=== PATIENT | female | born 1935 | race Caucasian/White ===

== ENCOUNTER → 2023-10-05 13:31 | Outpatient (REF) | payer OTHER, SELFPAY | LOC: RAD 13:31 | PROVIDERS: ATTENDING PHYSICIAN Internal Medicine | DX: I73.9 Peripheral vascular disease, unspecified (principal) | CPT/HCPCS: 93925 ==

== ENCOUNTER 2024-07-04 08:12 | Inpatient (IN) | payer OTHER, SELFPAY ==
[2024-06-30] VITALS (7 sets, daily range): BP systolic 143–175; BP diastolic 73–92; BMI 21.4; BMI 21.7
[2024-06-30 18:33] LABS: % Basophils 0.2 % (0-2); % Immature Granulocytes 0.4 % (0-0.5); % Lymphocytes 8.9 % (20.5-51.1); % Monocytes 6.3 % (1.7-9.3); % Neutrophils 84.2 % (42.2-75.2); Absolute Lymphocytes 0.4 10^3/uL (1.2-3.4); Absolute Monocytes 0.3 10^3/uL (0.1-0.6); Absolute Neutrophils 3.9 10^3/uL (1.4-6.5); Hemoglobin 14.4 g/dL (12.0-16.0); Mean Corp Hgb Conc. 34.3 g/dL (33.0-37.0); Mean Corpuscular Hgb 32.1 pg (27.0-31.0); Mean Corpuscular Volume 93.5 fL (81.0-99.0); Mean Platelet Volume 9.4 fL (7.4-10.4); Nucleated Red Blood Cells % 0 %; Platelet Count 152 10^3/uL (130-400); Red Blood Cell Count 4.49 10^6/uL (4.20-5.40); Red Cell Dist. Width 13.2 % (11.5-14.5); White Blood Cell Count 4.6 10^3/uL (4.8-10.8)
[2024-06-30] MEDS: TYLENOL 1000 MG PO (18:33)
[2024-06-30] MEDS: NSS 1000 IV ×2 (18:36→22:56)
[2024-06-30 18:49] LABS: ALT (SGPT) 22 U/L (0-35); AST (SGOT) 35 U/L (14-36); Albumin 4.8 g/dl (3.5-5.0); Alkaline Phosphatase 79 U/L (38-126); Blood Urea Nitrogen 14 mg/dl (7-17); Calcium 9.1 mg/dl (8.4-10.2); Carbon Dioxide 26 mmol/L (22-30); Chloride 96 mmol/L (98-107); Estimated Creatinine Clearance 47 ml/min; Glucose 124 mg/dl (70-99); Lactic Acid 1.6 mmol/L (0.7-2.0); Potassium 4.1 mmol/L (3.5-5.1); Sodium 132 mmol/L (135-145); Total Bilirubin 0.7 mg/dl (0.2-1.3); Total Protein 7.8 g/dl (6.3-8.2); eGFR > 60.00
[2024-06-30 18:51] LABS: COVID-19 Antigen Negative (Negative)
--- NOTE | 2024-06-30 20:53 | ED.GENMED ---
History of Present Illness
General
Chief Complaint: Weakness
Source: patient and family
Exam Limitations: none
Time Seen by Provider: 06/30/24 18:06
Nursing documentation reviewed up to this point in time: agreed with
History of Present Illness
History of Present Illness:
Patient to ED with complaint of SOB, fatigue. She states symptoms started today. She reports difficulty caring for self today due to her symptoms. Her niece brought her OTC medications today but became concerned and called 911 for transport. She
denies fever/chlls at home however temp 102 on arrival to ED. PUlse ox 91% RA at rest. +course cough. Denies any CP/pressure, n/v/d. No abd. pain.
Past History
Past History
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
Social History
Tobacco: Non-smoker
Alcohol: None
Personal:
Living: with family
Review of Systems
Review of Systems
All Other Systems: ROS reviewed and negative except as documented in HPI and ROS
Constitutional: Reports fever and fatigue
EENT: Reports no symptoms
Respiratory: Reports cough and trouble breathing
Cardiac: Reports no symptoms
ABD/GI: Reports no symptoms
: Reports no symptoms
Musculoskeletal: Reports no symptoms
Skin: Reports no symptoms
Neurological: Reports weakness
Psychiatric: Reports no symptoms
Phy Exam
General Physical Exam
General Presentation: mild distress
General age: appears stated age
General Skin: warm and dry
General Habitus: normal
General Mental: alert
Cardiovascular Exam
Cardiovascular Exam: regular rate/rhythm and no edema
Pulmonary Exam
Pulmonary Exam: chest non tender and no wheezing
Cough: coarse cough
Breath Sounds: Rhonchi: left upper and right upper
Gastrointestinal Exam
Gastrointestinal Exam: non tender, soft and no organomegaly
Musculoskeletal Exam
Musculoskeletal Exam: full ROM and neuro vasc intact
Skin Exam
Skin Exam: normal color, warm/dry and no rash
Psychiatric Exam
Psychiatric Exam: normal mood/affect
Course
Orders/Labs/Results
Orders:
Orders
06/30/24 Dinner
Regular
At Your Request: Non-Participating
Does patient need a safe tray?: No
06/30/24 18:07
Urinalysis Reflex To Culture Urgent
CR Chest - 2 Views Urgent
Comment:
Reason For Exam: fever, weakness
06/30/24 18:08
Acetaminophen [Tylenol] 1,000 mg PO NOW STA
06/30/24 18:26
COVID-19 Antigen Urgent
Source: Nasal Swab
Complete Blood Count/With Diff Urgent
Comprehensive Metabolic Panel Urgent
Lactic Acid Urgent
Blood Culture Urgent
ERNA Source: Blood/Venous
Specimen Description:
Influenza A+B Rapid Molecular Urgent
ERNA Source: Nasal Swab
Specimen Description:
06/30/24 18:30
CT Head W/o Iv Contrast Urgent
Comment:
Reason For Exam: change in mental status
06/30/24 18:33
0.9% Sodium Chloride 1000 ml [Nss] 1,000 ml IV BOLUS
06/30/24 20:49
Oseltamivir Phosphate [Tamiflu] 75 mg PO NOW STA
06/30/24 20:50
Azithromycin 500 mg/250 ml [Zithromax Infusion] 500 mg in 250 ml IV NOW
CefTRIAXone [Rocephin] 1,000 mg IV NOW STA
06/30/24 21:18
Admit/Transfer Patient As Directed
Co-Sign Provider:
Level of Care: Observation services
Assign to:: Medical/Surgical
Physician / Group: omari
Diagnosis: influenza
Code Status As Directed
Resuscitation Status: Full Code
PRN Pain Medication Management As Directed
May give lesser potent ordered pain med per pt: Yes
preference::
Protocol:: Medication orders for pain may be administered in a
manner that supports deferring to patient preference
when the pt is:
- Requesting an ordered lesser potent pain medication.
Least to most potent pain medications are defined
as: acetaminophen < NSAID < tramadol < opioids
(morphine, oxycodone, hydromorphone).
- Requesting a lesser dose of the same medication IF
ORDERED.
- Requesting a less intrusive route of administration
if both routes are prescribed by the provider (PO <
IV).
06/30/24 22:19
0.9% Sodium Chloride 1000 ml [Nss] 1,000 ml IV 70 mls/hr
Acetaminophen [Tylenol] 650 mg PO Q4HPRN PRN
Ibuprofen [Motrin] 400 mg PO Q6HPRN PRN
Ondansetron Injectable [Zofran] 4 mg IV Q6HPRN PRN
06/30/24 22:19
Activity As Directed
Activity Level: As Tolerated
Vital Signs As Directed
Frequency: Per unit guidelines
DX Deep Vein Thrombosis Video Routine
07/01/24 06:00
Complete Blood Count/With Diff IN AM
Comprehensive Metabolic Panel IN AM
07/01/24 08:00
Heparin 5,000 units SC Q12
Abnormal Lab Results
06/30/24
18:26
WBC 4.6 L 10^3/uL
(4.8-10.8)
MCH 32.1 H pg
(27.0-31.0)
Absolute Lymphs (auto) 0.4 L 10^3/uL
(1.2-3.4)
Neutrophils % 84.2 H %
(42.2-75.2)
Lymphocytes % 8.9 L %
(20.5-51.1)
Sodium 132 L mmol/L
(135-145)
Chloride 96 L mmol/L
(98-107)
Glucose 124 H mg/dl
(70-99)
06/30/24 18:26
06/30/24 18:26
Vital Signs
Initial and Last Documented VS:
Initial Vital Signs
BP
175/84
06/30/24 18:08
Last Documented Vital Signs
Temp Pulse Resp BP Pulse Ox
99.0 F 80 19 143/73 93
06/30/24 23:08 06/30/24 23:08 06/30/24 23:08 06/30/24 23:08 06/30/24 23:22
*Radiology
Radiology exam reviewed: radiology read reviewed
*Pulse Oximetry
Patient hypoxic: yes
Comment: Pulse ox 90-91% RA, 94% 2LNC
*Critical Care Note
Total Time (30-74mins, 75-104mins- exclusive of procedures): Not Applicable
Update Note
Update Note:
Patient brought to ED for report of weakness, fatigue, cough. Symptoms started today. Temp 102 on arrival, pulse ox 90-91% RA. Course cough. She lives alone, states she has been able to care for self until this AM. Niece called for transport to
ED. Given IVF, tylenol on arrival. O2 at 2LNC applied. Pulse ox holding at 94-95%. CXR with bilateral pneumonia. She is also influenza A pos. Case discussed with Dr. Tilley who recommends initiation of IV antibiotics for pneumonia. Will admit
to hospitalists service. Tamiflu initiated.
ED Attending Note
-
Portions of this chart may have been created with voice recognition software.� Occasional wrong word or��sound alike� substitutions may have occurred due to the inherent limitations of voice recognition software.
Discharge Plan
Departure
Patient Disposition: Admit
Date of Disposition: 06/30/24
Time of Disposition: 20:59
Presentation/result/management discussed w/ accepting MD/DO: Hospitalist
Condition: Fair
Covid-19: Not Applicable
Discharge Problem:
Influenza A, Pneumonia
Interventions
Interventions:
*Risk Screen - Suicide Last Done: 06/30/24 22:32
*General Assessment Last Done: 06/30/24 18:13
*Neglect/Abuse Screening Last Done: 06/30/24 18:13
ED- Fall Risk Assessment Last Done: 06/30/24 18:22
*ED COVID-19 Vaccine History Last Done: 06/30/24 18:13
*Nursing Disposition Last Done: 06/30/24 22:19
ED- Cardiac Assessment Last Done: 06/30/24 18:22
ED- Neurological Assessment Last Done: 06/30/24 18:22
ED- Pulmonary Assessment Last Done: 06/30/24 18:22
Discharge Date and Time
Discharge Date/Time: 06/30/24 22:20
--- NOTE | 2024-06-30 21:20 | HPS.HSE ---
Addendum entered and electronically signed by Cinthya Castanon MD 06/30/24 21:22:
Correction- Symptoms started 2 days ago.
Original Note:
Family Physician
-
Family Physician: Tessie Malloy
Chief Complaint
-
cough, weakness
History of Present Illness
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 Denied fever chills but had
temperature of 102. Pulse ox was 91%. Denies chest pain or nausea vomiting or diarrhea. Denies abdominal pain. Denies chest pain. Denies sick contacts.
Denies smoking or alcohol use.
Medical History
Past Medical History
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
Past Surgical History: Reports None
Social History
Tobacco: Non-smoker
Alcohol: None
Drug: None
Family History
Family History: Not pertinent
Allergies / Home Medications
Allergies reflects when Allergies were last updated in [facility].
Home Medications with original date entered in [facility]
Allergy/Medication List:
Allergies
Allergy/AdvReac Type Severity Reaction Status Date / Time
Iodinated Contrast Media Allergy Rash Verified 12/10/21 15:25
[Iodinated Contrast Media -
IV Dye]
Home Medications
pyridostigmine bromide 60 mg tablet 120 mg PO BID 01/20/14
Flaxseed Powder 1 dose PO DAILY 09/11/19
acetaminophen 500 mg tablet (Tylenol Extra Strength) 1,000 mg PO Q6HPRN PRN mild pain 09/11/19
evening primrose oil 500 mg capsule 500 mg PO DAILY 09/11/19
polyvinyl alcohol-povidone (PF) 1.4 %-0.6 % eye drops in a dropperette (Refresh Classic (PF)) 1 drops BOTH EYES DAILY 09/11/19
Saccharomyces boulardii 250 mg capsule (Florastor) 250 mg PO BID #60 caps 09/14/19
amoxicillin 875 mg-potassium clavulanate 125 mg tablet 1 tab PO Q12 #10 tabs 09/14/19
hydrocodone 5 mg-acetaminophen 325 mg tablet 1 tab PO Q4HPRN PRN severe pain #10 tabs 12/10/21
Review of Systems
-
History Source: Patient
A 12 point ROS was completed and negative except as noted: Yes
Constitutional: Reports No Symptoms
EENT: Reports See HPI
Respiratory: Reports See HPI
Cardiac: Reports No Symptoms
Abdomen/GI: Reports No Symptoms
: Reports No Symptoms
Musculoskeletal: Reports No Symptoms
Skin: Reports No Symptoms
Neurological: Reports No Symptoms
Endocrine: Reports No Symptoms
Hematologic/Lymphatic: Reports No Symptoms
Psych: Reports No Symptoms
Physical Exam
Vital Signs
Vital Signs
Temp Pulse Resp BP Pulse Ox
99.8 F 81 19 162/92 92
06/30/24 20:46 06/30/24 20:45 06/30/24 20:45 06/30/24 20:00 06/30/24 20:45
Physical Exam
General: Well Developed, Well Nourished and No Apparent Distress
HEENT: NormoCephalic, Moist mucous membranes and Atraumatic
Respiratory: Clear
Cardiac: S1/S2 and Regular Rhythm; No Murmur or Rub
GI: Soft, Non Tender, Non Distended and Normal Bowel Sounds; No Organomegaly
Rectal: Deferred by Provider
Musculoskeletal: No Clubbing, No Cyanosis and No Edema
Skin: No Rash
Neuro: Nonfocal/grossly intact
Laboratory Results
-
06/30/24 18:26
06/30/24 18:26
Laboratory Results
Lactic Acid 1.6 mmol/L (0.7-2.0) 06/30/24 18:26
Total Bilirubin 0.7 mg/dl (0.2-1.3) 06/30/24 18:26
AST 35 U/L (14-36) 06/30/24 18:26
ALT 22 U/L (0-35) 06/30/24 18:26
Alkaline Phosphatase 79 U/L (38-126) 06/30/24 18:26
Data Reviewed
-
Lab Data: Labs Reviewed by me
Old Records: Reviewed
Impression/Plan
-
IMPRESSION:
PLAN:
# Influenza A infection
-Chest x-ray shows patchy opacities of the right mid and upper lung
-CT head negative
-Blood cultures pending
-IV fluids
-Tamiflu started
-Ceftriaxone/azithromycin given hold further antibiotics
-Tylenol
History of occult myasthenia gravis
-Continue pyridostigmine
Colorectal cancer status post bowel resection with colostomy
Full code
DVT prophylaxis�heparin
Regular diet
[2024-06-30] MEDS: ROCEPHIN 1000 MG IV (21:48)
[2024-06-30] MEDS: TAMIFLU 75 MG PO (21:48)
[2024-06-30] MEDS: ZITHROMAX INFUSION 250 IV (21:48)
[2024-06-30] MEDS: TYLENOL 650 MG PO (23:03)
[2024-07-01 02:07] LABS: Urine Albumin Negative (Neg - Trace); Urine Bilirubin Negative (Negative); Urine Character Clear (Clear); Urine Color Yellow; Urine Glucose Negative (Negative); Urine Ketone 2+ (Negative); Urine Leukocyte Negative (Negative); Urine Nitrite Negative (Negative); Urine Occult Blood Trace (Negative); Urine Specific Gravity 1.015 (<1.030); Urine Urobilinogen Negative (Neg - 1+)
[2024-07-01 02:20] LABS: Urine Squamous Cell 0-2 /LPF (Few)
[2024-07-01 02:21] LABS: Urine Bacteria Few (Negative); Urine White Cell 0-2 /HPF (0-5)
[2024-07-01 07:20] VITALS: BP 155/77
[2024-07-01] MEDS: TAMIFLU 30 MG PO ×2 (08:23→20:33)
[2024-07-01] MEDS: HEPARIN 5000 UNITS SC ×2 (08:23→16:04)
--- NOTE | 2024-07-01 08:35 | W.PN.HOSP.TC ---
Addendum entered and electronically signed by Antonio Hammond MD 07/01/24 14:17:
She does not take Mestinon anymore.
Original Note:
Today's Communication/Plan
-
Tamiflu
Assessment / Plan
Assessment / Plan
Physical exam:
General: Well Developed, Well Nourished and No Apparent Distress
HEENT: Normocephalic, Atraumatic and Moist Mucous Membranes
Respiratory: Clear to Auscultation; Negative Wheezes, Rales or Rhonchi
Cardiac: Regular Rhythm and S1/S2
GI: Soft, Nontender and Nondistended
Musculoskeletal: No Clubbing, No Cyanosis and No Edema
Neuro: Awake, Alert and Oriented, no gross neurological deficits
Psych: Calm
A/P:
Influenza A:
Continue Tamiflu, renally dosed
Add cough medications as needed
Acute hypoxic respiratory insufficiency:
Continue supplemental oxygen and titrate down as able
Abnormal chest x-ray:
Likely viral pneumonia
Stop IV fluids
Given antibiotics in the ED. Hold off on further antibiotics.
Blood culture negative so far (1 set only) but continue to monitor
History of myasthenia gravis:
Restart pyridostigmine today on 07/01
Awaiting for medication reconciliation
DVT prophylaxis:
Heparin SQ
CODE STATUS:
Full code
Anticipated Discharge: 24 - 48 hours
Subjective/Interval History
-
Date of Service: July 01, 2024
Patient still having significant cough, less short of breath. On supplemental oxygen. Afebrile today (Tmax 102.7 yesterday)
Objective Data
-
Labs:
Laboratory Results
07/01/24
07:49
WBC Pending
Hgb Pending
Hct Pending
Plt Count Pending
Sodium Pending
Potassium Pending
Chloride Pending
Carbon Dioxide Pending
BUN Pending
Creatinine Pending
Glucose Pending
Calcium Pending
Total Bilirubin Pending
AST Pending
ALT Pending
Alkaline Phosphatase Pending
Vital Signs:
Vital Signs
Temp Pulse Resp BP Pulse Ox
99.8 F 73 17 155/77 95
07/01/24 07:20 07/01/24 07:20 07/01/24 07:20 07/01/24 07:20 07/01/24 07:20
I&O
06/30/24 07/01/24 07/02/24
06:59 06:59 06:59
Intake Total 1320 / 1320
Balance 1320 / 1320
--- NOTE | 2024-07-01 10:02 | CM ---
Addendum entered by Eleonora Navarro RN 07/01/24 10:08:
Patient currently on O2 @ 3L/min via nc.
Original Note:
Reviewed the chart notes and spoke with the patient at the bedside. Patient admitted under observational status. The J[facility] letter was provided and reviewed. The patient had no questions with regards to the letter.
Patient is admitted for influenza. The patient resides alone in a one story home with two steps to enter via front door or one step to enter via garage. The patient reports no DME/VN/SNF in the past. The patient confirmed [facility] and PCP is Dr. Gabriella Malloy. CM continues to be available to patient/family and is monitoring medical plan for needs at discharge.
Plan: Discharge plans will depend on the patient's progress.
[2024-07-01 10:10] LABS: % Basophils 0.1 % (0-2); % Immature Granulocytes 0.6 % (0-0.5); % Lymphocytes 10.3 % (20.5-51.1); % Monocytes 4.6 % (1.7-9.3); % Neutrophils 84.4 % (42.2-75.2); Absolute Lymphocytes 0.7 10^3/uL (1.2-3.4); Absolute Monocytes 0.3 10^3/uL (0.1-0.6); Absolute Neutrophils 5.9 10^3/uL (1.4-6.5); Hematocrit 36.6 % (37.0-47.0); Hemoglobin 12.5 g/dL (12.0-16.0); Mean Corp Hgb Conc. 34.2 g/dL (33.0-37.0); Mean Corpuscular Volume 93.6 fL (81.0-99.0); Mean Platelet Volume 9.9 fL (7.4-10.4); Nucleated Red Blood Cells % 0 %; Platelet Count 136 10^3/uL (130-400); Red Blood Cell Count 3.91 10^6/uL (4.20-5.40); Red Cell Dist. Width 13.3 % (11.5-14.5)
[2024-07-01 10:46] LABS: ALT (SGPT) 18 U/L (0-35); AST (SGOT) 30 U/L (14-36); Albumin 3.4 g/dl (3.5-5.0); Alkaline Phosphatase 52 U/L (38-126); Blood Urea Nitrogen 9 mg/dl (7-17); Calcium 8.1 mg/dl (8.4-10.2); Carbon Dioxide 20 mmol/L (22-30); Chloride 100 mmol/L (98-107); Estimated Creatinine Clearance 55 ml/min; Glucose 90 mg/dl (70-99); Potassium 3.7 mmol/L (3.5-5.1); Sodium 132 mmol/L (135-145); Total Bilirubin 0.7 mg/dl (0.2-1.3); Total Protein 6.1 g/dl (6.3-8.2); eGFR > 60.00
[2024-07-01] MEDS: ZOFRAN 4 MG IV (11:02)
[2024-07-01] MEDS: NSS 1000 IV (12:37)
[2024-07-01 15:04] VITALS: PULSE 75; O2SAT 98
[2024-07-01 15:25] VITALS: BP 148/73
[2024-07-01 23:13] VITALS: BP 138/68
[2024-07-02] MEDS: HEPARIN 5000 UNITS SC ×4 (00:30→23:07)
[2024-07-02 08:03] VITALS: BP 150/83
[2024-07-02] MEDS: TAMIFLU 30 MG PO ×2 (08:18→20:27)
[2024-07-02 08:43] LABS: Hematocrit 34.5 % (37.0-47.0); Hemoglobin 11.6 g/dL (12.0-16.0); Mean Corp Hgb Conc. 33.6 g/dL (33.0-37.0); Mean Corpuscular Hgb 31.7 pg (27.0-31.0); Mean Corpuscular Volume 94.3 fL (81.0-99.0); Mean Platelet Volume 9.6 fL (7.4-10.4); Platelet Count 131 10^3/uL (130-400); Red Blood Cell Count 3.66 10^6/uL (4.20-5.40); Red Cell Dist. Width 13.2 % (11.5-14.5); White Blood Cell Count 4.1 10^3/uL (4.8-10.8)
--- NOTE | 2024-07-02 08:55 | W.PN.HOSP.TC ---
Addendum entered and electronically signed by Antonio Hammond MD 07/02/24 17:46:
updated sister over the phone today
Original Note:
Today's Communication/Plan
-
Oxygen. Tamiflu
Assessment / Plan
Assessment / Plan
Physical exam:
General: Well Developed, Well Nourished and No Apparent Distress
HEENT: Normocephalic, Atraumatic and Moist Mucous Membranes
Respiratory: Clear to Auscultation; Negative Wheezes, Rales or Rhonchi
Cardiac: Regular Rhythm and S1/S2
GI: Soft, Nontender and Nondistended
Musculoskeletal: No Clubbing, No Cyanosis and No Edema
Neuro: Awake, Alert and Oriented, no gross neurological deficits
Psych: Calm
A/P:
Influenza A:
Continue Tamiflu, renally dosed
Cont cough medications as needed
Acute hypoxic respiratory insufficiency:
Incentive spirometry
Continue supplemental oxygen and titrate down as able
Abnormal chest x-ray:
Likely viral pneumonia
Off IV fluids
Given antibiotics in the ED. Hold off on further antibiotics.
Blood culture negative so far
Hyponatremia:
Improving
Leukopenia:
Likely viral
Anemia:
No signs of active bleeding
Probably dilutional
No myasthenia gravis per patient report.
DVT prophylaxis:
Heparin SQ
CODE STATUS:
Full code
Anticipated Discharge: 24 - 48 hours
Subjective/Interval History
-
Date of Service: July 02, 2024
Patient feels better overall. Less cough and less shortness of breath. Afebrile. Still on supplemental oxygen
Objective Data
-
Labs:
Laboratory Results
07/02/24
08:10
WBC 4.1 L
Hgb 11.6 L
Hct 34.5 L
Plt Count 131
Sodium Pending
Potassium Pending
Chloride Pending
Carbon Dioxide Pending
BUN Pending
Creatinine Pending
Glucose Pending
Calcium Pending
Vital Signs:
Vital Signs
Temp Pulse Resp BP Pulse Ox
98.2 F 67 16 150/83 93
07/02/24 08:03 07/02/24 08:03 07/02/24 08:03 07/02/24 08:03 07/02/24 08:03
I&O
07/01/24 07/02/24 07/03/24
06:59 06:59 06:59
Intake Total 1320 / 1320 2360 / 2360
Balance 1320 / 1320 2360 / 2360
[2024-07-02 09:06] LABS: Blood Urea Nitrogen 9 mg/dl (7-17); Calcium 8.1 mg/dl (8.4-10.2); Carbon Dioxide 26 mmol/L (22-30); Chloride 104 mmol/L (98-107); Estimated Creatinine Clearance 47 ml/min; Glucose 87 mg/dl (70-99); Potassium 3.7 mmol/L (3.5-5.1); Sodium 135 mmol/L (135-145); eGFR > 60.00
[2024-07-02 09:30] LABS: % Basophils 0.5 % (0-2); % Eosinophils 0.2 % (0-6); % Immature Granulocytes 0.2 % (0-0.5); % Monocytes 6.8 % (1.7-9.3); % Neutrophils 70.3 % (42.2-75.2); Absolute Lymphocytes 0.9 10^3/uL (1.2-3.4); Absolute Monocytes 0.3 10^3/uL (0.1-0.6); Absolute Neutrophils 2.9 10^3/uL (1.4-6.5); Nucleated Red Blood Cells % 0 %
--- NOTE | 2024-07-02 12:53 | CM ---
Chart reviewed.
Pt currently on 2L O2.
PT recommending home PT at d/c. Discussed w/ pt, pt agreeable to [facility] referral completed in [facility], liaison made aware
[facility]

Plan: Home w/ [facility]
--- NOTE | 2024-07-02 13:05 | VNURNOTE ---
Home Health Liaison spoke with patient to discuss [facility] nurse/therapy, visits, schedule and homebound status. Patient is agreeable and understands that visits at home will be 2-3 x per week to assess and teach medical management. Patient is aware
that [facility] will contact them for start of care in 1-2 days after discharge from . [facility] referral completed in [facility].
[2024-07-02 15:55] VITALS: BP 140/70
[2024-07-02] MEDS: ROBITUSSIN 100 MG PO (22:52)
[2024-07-02 23:25] VITALS: BP 130/70
[2024-07-03 07:25] VITALS: BP 143/76
[2024-07-03 07:56] LABS: % Eosinophils 1.3 % (0-6); % Immature Granulocytes 0.3 % (0-0.5); % Lymphocytes 27.4 % (20.5-51.1); Absolute Lymphocytes 0.9 10^3/uL (1.2-3.4); Absolute Monocytes 0.4 10^3/uL (0.1-0.6); Absolute Neutrophils 1.9 10^3/uL (1.4-6.5); Hematocrit 33.6 % (37.0-47.0); Hemoglobin 11.4 g/dL (12.0-16.0); Mean Corp Hgb Conc. 33.9 g/dL (33.0-37.0); Mean Corpuscular Hgb 31.7 pg (27.0-31.0); Mean Corpuscular Volume 93.3 fL (81.0-99.0); Mean Platelet Volume 9.8 fL (7.4-10.4); Nucleated Red Blood Cells % 0 %; Platelet Count 130 10^3/uL (130-400); Red Cell Dist. Width 13.2 % (11.5-14.5); White Blood Cell Count 3.2 10^3/uL (4.8-10.8)
[2024-07-03] MEDS: TAMIFLU 30 MG PO ×2 (08:17→19:50)
[2024-07-03] MEDS: HEPARIN 5000 UNITS SC ×3 (08:17→22:59)
[2024-07-03 08:25] LABS: Blood Urea Nitrogen 12 mg/dl (7-17); Calcium 8.2 mg/dl (8.4-10.2); Carbon Dioxide 28 mmol/L (22-30); Chloride 103 mmol/L (98-107); Estimated Creatinine Clearance 55 ml/min; Glucose 90 mg/dl (70-99); Sodium 135 mmol/L (135-145); eGFR > 60.00
[2024-07-03 08:31] LABS: Potassium 3.7 mmol/L (3.5-5.1)
--- NOTE | 2024-07-03 09:49 | W.PN.HOSP.TC ---
Today's Communication/Plan
-
Tamiflu. Oxygen
Assessment / Plan
Assessment / Plan
Physical exam:
General: Well Developed, Well Nourished and No Apparent Distress
HEENT: Normocephalic, Atraumatic and Moist Mucous Membranes
Respiratory: Clear to Auscultation; Negative Wheezes, Rales or Rhonchi
Cardiac: Regular Rhythm and S1/S2
GI: Soft, Nontender and Nondistended
Musculoskeletal: No Clubbing, No Cyanosis and No Edema
Neuro: Awake, Alert and Oriented, no gross neurological deficits
Psych: Calm
A/P:
Influenza A:
Continue Tamiflu, renally dosed
Cont cough medications as needed
Updated sister yesterday
Acute hypoxic respiratory insufficiency:
Incentive spirometry
Continue supplemental oxygen and titrate down as able
Abnormal chest x-ray:
Likely viral pneumonia
Off IV fluids
Given antibiotics in the ED. Hold off on further antibiotics.
Blood culture negative so far
Hyponatremia:
Improving
Leukopenia:
Likely viral
Anemia:
No signs of active bleeding
Probably dilutional
No myasthenia gravis per patient report.
DVT prophylaxis:
Heparin SQ
CODE STATUS:
Full code
Anticipated Discharge: 24 - 48 hours
Subjective/Interval History
-
Date of Service: July 03, 2024
Patient feels better overall. Still on supplemental oxygen
Objective Data
-
Labs:
Laboratory Results
07/03/24
07:26
WBC 3.2 L
Hgb 11.4 L
Hct 33.6 L
Plt Count 130
Sodium 135
Potassium 3.7
Chloride 103
Carbon Dioxide 28
BUN 12
Creatinine 0.6
Glucose 90
Calcium 8.2 L
Vital Signs:
Vital Signs
Temp Pulse Resp BP Pulse Ox
98.0 F 67 16 143/76 91
07/03/24 07:25 07/03/24 07:25 07/03/24 07:25 07/03/24 07:25 07/03/24 07:25
I&O
07/02/24 07/03/24 07/04/24
06:59 06:59 06:59
Intake Total 2360 / 2360 600 / 600
Balance 2360 / 2360 600 / 600
[2024-07-03 15:55] VITALS: BP 152/77
[2024-07-03 16:25] VITALS: BP 152/77
[2024-07-03 23:14] VITALS: BP 147/75
[2024-07-03] MEDS: TESSALON PERLES 100 MG PO (23:22)
--- NOTE | 2024-07-04 07:20 | W.PN.HOSP.TC ---
Today's Communication/Plan
-
Discharge planning
Assessment / Plan
Assessment / Plan
Physical exam:
General: Well Developed, Well Nourished and No Apparent Distress
HEENT: Normocephalic, Atraumatic and Moist Mucous Membranes
Respiratory: Clear to Auscultation; Negative Wheezes, Rales or Rhonchi
Cardiac: Regular Rhythm and S1/S2
GI: Soft, Nontender and Nondistended
Musculoskeletal: No Clubbing, No Cyanosis and No Edema
Neuro: Awake, Alert and Oriented, no gross neurological deficits
Psych: Calm
A/P:
Influenza A:
Continue Tamiflu, renally dosed
Cont cough medications as needed
Updated sister prior
Acute hypoxic respiratory insufficiency:
Improved
Incentive spirometry
Continue supplemental oxygen and titrate down as able
Abnormal chest x-ray:
Likely viral pneumonia
Off IV fluids
Given antibiotics in the ED. Hold off on further antibiotics.
Blood culture negative so far
Hyponatremia:
Improving
Leukopenia:
Likely viral
Anemia:
No signs of active bleeding
Probably dilutional
No myasthenia gravis per patient report.
DVT prophylaxis:
Lovenox SQ
CODE STATUS:
Full code
Anticipated Discharge: Today
Subjective/Interval History
-
Date of Service: July 04, 2024
Patient doing well. Afebrile. Off oxygen
Objective Data
-
Vital Signs:
Vital Signs
Temp Pulse Resp BP Pulse Ox
98.5 F 63 18 147/75 95
07/03/24 23:14 07/03/24 23:14 07/03/24 23:14 07/03/24 23:14 07/03/24 23:14
I&O
07/03/24 07/04/24 07/05/24
06:59 06:59 06:59
Intake Total 600 / 600 1620 / 1620
Output Total 400 / 400
Balance 600 / 600 1220 / 1220
[2024-07-04 07:52] VITALS: BP 152/68
[2024-07-04] MEDS: TAMIFLU 30 MG PO (08:50)
--- NOTE | 2024-07-04 11:10 | CM ---
Reviewed the chart notes and spoke with the patient at the bedside. IMM reviewed. CM continues to be available to patient/family and is monitoring medical plan for needs at discharge.
Plan: Discharge to home with VN services. VN has spoken with the patient at the bedside.
[2024-07-04 11:24] VITALS: BP 149/82; PULSE 64; O2SAT 97
--- NOTE | 2024-07-04 13:11 | W.DCSUMMARY ---
Discharge Summary
Discharge Data
Date of Admission: 07/04/24
Date of Discharge: 07/04/24
-
Pending Results: No
Hospital Course
Patient 89 years old female came into the hospital with cough and shortness of breath and hypoxia. She was found to have influenza A. She was treated with Tamiflu. She was kept on oxygen and was able to be titrated off. Blood culture has
remained negative. Patient did well rest of hospital stay and she was able to come off oxygen. She participated with PT and OT. She is hemodynamically stable and afebrile. She is oxygenating well on room air. She will be discharged in stable
condition today.
Discharge duration: 35 minutes
Discharge Plan
-
Patient Disposition: Home with Home Care
Discharge Diagnosis/Procedures: Influenza A. Viral pneumonia. Hyponatremia. Acute hypoxic respiratory insufficiency. Hyponatremia.
Diet: Low Cholesterol
Activity: As tolerated
Blood Work: Please PCP to order CBC, BMP within 1 week
Referrals:
Tessie Malloy MD [Family Provider] - in less than 1 week
Prescriptions:
New
oseltamivir 30 mg Capsule
30 mg PO BID 3 Days Qty: 6 0RF
Continued
Flaxseed Powder
1 dose PO DAILY
PreserVision AREDS 2,148 mcg-113 mg-45 mg-17.4mg Tablet
1 tab PO DAILY
krill oil 500 mg Capsule
500 mg PO DAILY
Discharge Orders:
Discharge Patient (As Directed); Ordered 07/04/24
Ordered By: Antonio Hammond
Discharge Date and Time
Discharge Date/Time: 07/04/24 18:16
Print Language: CHINESE
[2024-07-04 13:57] VITALS: BP 164/74
[2024-07-04 16:06] VITALS: BP 143/68
== END 2024-07-04 18:16 | disposition home health service (06) | DRG 194 ==
LOC: 2 NORTH 08:12
PROVIDERS: Nurse Practitioner; ADMITTING PHYSICIAN Hospitalist; ATTENDING PHYSICIAN Hospitalist; EMERGENCY PHYSICIAN Emergency Medicine; FAMILY PHYSICIAN Internal Medicine
DX: J10.08 Influenza due to other identified influenza virus with other specified pneumonia (principal); E22.2 Syndrome of inappropriate secretion of antidiuretic hormone; R09.02 Hypoxemia; R06.89 Other abnormalities of breathing; Z90.49 Acquired absence of other specified parts of digestive tract; Z93.3 Colostomy status; Z85.048 Personal history of other malignant neoplasm of rectum, rectosigmoid junction, and anus; Z11.52 Encounter for screening for COVID-19
CPT/HCPCS: 70450; 71046; 80048; 80053; 81003; 81015; 83605; 85025; 87040; 87502; 87811; 96360; 97116; 97162; 99285